=== PATIENT | female | born 1985 | race Caucasian/White ===

== ENCOUNTER 2019-09-30 00:06 | Inpatient (IN) ==
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
[2019-09-30] MEDS ORDERED: DEXTROSE 5%-LACTATED RINGERS 1,000 ML IV PRN (00:11)
[2019-09-30] MEDS ORDERED: RINGER'S SOLUTION,LACTATED 1,000 ML IV ONE (00:11)
[2019-09-30] MEDS ORDERED: MISOPROSTOL 100 MCG TABLET VG PRN (00:11)
[2019-09-30] MEDS ORDERED: OXYTOCIN/DEXTROSE 5%-WATER 30 UNITS/500 ML BAG IV ONE ×2 (00:11→17:46)
[2019-09-30] MEDS ORDERED: ONDANSETRON 4 MG TAB.RAPDIS PO PRN (00:11)
[2019-09-30 00:38] LABS: Hematocrit 36.3 % (37.0-47.0); Hemoglobin 12.6 gm/dL (12.5-16.0); Mean Cell Volume 87.5 fl (78-100); Mean Corpuscular Hemoglobin 30.4 pg (27-31); Mean Corpuscular Hgb Conc 34.7 g/dl (32-36); Mean Platelet Volume 8.8 fl (8-12.5); Neutrophil # 5.7 K/mm3 (1.3-6.0); Neutrophil % 67.7 % (42-75.0); Platelet Count 211 K/mm3 (150-450); Red Blood Count 4.15 M/mm3 (4.2-5.4); Red Cell Distribution Width 13.2 % (11.5-14.0); White Blood Count 8.4 K/mm3 (4.0-10.5)
[2019-09-30 00:51] LABS: Albumin * 2.7 gm/dl (3.4-5.0); BUN/Creatinine Ratio 10.6 (9.0-21.6); Bilirubin, Total 0.2 mg/dL (0.0-1.1); Ca. Corrected For Albumin 8.7 mg/dL (8.4-10.2); Carbon Dioxide 21.3 mmol/L (24-32.6); Potassium 3.3 mmol/L (3.4-4.6); Total Protein 5.9 gm/dL (6.2-8.2)
[2019-09-30 00:59] LABS: Cocaine Ur Negative (NEGATIVE); Urine Barbiturate Negative (NEGATIVE); Urine Benzodiazepines Negative (NEGATIVE); Urine Opiates Negative (NEGATIVE); Urine PCP Negative (NEGATIVE); Urine THC Negative (NEGATIVE)
[2019-09-30] MEDS ORDERED: BUPIVACAINE HCL/0.9 % NACL/PF 250 ML EP PRN (06:41)
[2019-09-30] MEDS ORDERED: NALOXONE HCL 1 MG/1 ML SYRG IV PRN (06:41)
[2019-09-30] MEDS ORDERED: ONDANSETRON HCL/PF 2 MG/ML VIAL IV PRN (06:41)
[2019-09-30] MEDS ORDERED: BUPIVACAINE HCL/PF 30 ML VIAL EP SCH (06:45)
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
--- NOTE | 2019-09-30 07:25 | ANES ---
Anesthesia Procedure Note Procedure Note: ANESTHESIA PROCEDURE NOTE Date of Procedure: 09/30/2019. Time of procedure: 714. Performed by: Mervin Baker CRNA Electronic Equipment Trades Worker: None. Preprocedure diagnosis: Active labor. Post procedure diagnosis: Same. Procedure: Insertion of labor epidural. Indications: The patient is a 34-year-old female in active labor requesting labor epidural for pain management. Findings: See below. Details of the procedure: The patient was placed in a sitting position. DuraPrep as well as Betadine swabs X3 was applied to the patient's back. Patient was then draped in a sterile fashion. Lidocaine 1% was infiltrated to the skin and subcutaneous tissues at the level of the L3-4 interspace. The epidural space was identified using a 18-gauge Tuohy needle with [id number] technique. Epidural catheter was inserted to a depth of 13 centimeters at skin. Negative test dose was elicited using 3 mL of 1.5% preservative-free lidocaine plus epinephrine 1 200,000. The epidural catheter was then taped and secured in place. A loading dose of 8 mL of 0.25% preservative-free bupivacaine was administered to the epidural catheter after negative aspiration for blood and CSF. EBL: Minimal. Fluids: N/A. Specimen: N/A. Post procedure condition: The patient tolerated the procedure well. No complications were noted. Thank you for this consultation. Mervin Baker CRNA
--- NOTE | 2019-09-30 07:25 | ANES ---
Post Anesthesia Assessment - Vital Signs Vitals: Last Vital Signs Temp 36.5 C 09/30/19 00:24 Pulse 83 09/30/19 00:24 Resp 20 09/30/19 00:24 BP 145/81 H 09/30/19 00:24 Pulse Ox 97 09/30/19 00:24 Airway Patency: Normal - Mental Status Level Of Consciousness: Awake - N/V Assessment Nausea/Vomiting Presence: None Dehydration:: No
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
--- NOTE | 2019-09-30 09:25 | PN ---
Progess Note - Interim Date: 09/30/19 Time: 09:24 Narrative: 09/30/19 09:24 Patient comfortable with epidural Vital signs stable. Pitocin at 4 mu/min. FHT: 125 baseline, reassuring contractions q 3-4 min Cervix: 3/50/-2 Impression: Intrauterine at 38 weeks induction of labor for chronic hypertension controlled on medication. Plan: Continue present plan
[2019-09-30] MEDS ORDERED: GLYCERIN/WITCH HAZEL LEAF 40 APPL BOX TP PRN (17:46)
[2019-09-30] MEDS ORDERED: SENNOSIDES 8.6 MG TABLET PO PRN (17:46)
[2019-09-30] MEDS ORDERED: HYDROCORTISONE 30 APPL TUBE TP PRN (17:46)
[2019-09-30] MEDS ORDERED: oxyCODONE HCL/ACETAMINOPHEN 1 TAB TABLET PO PRN (17:46)
[2019-09-30] MEDS ORDERED: BISACODYL 10 MG SUPP.RECT RC PRN (17:46)
[2019-09-30] MEDS ORDERED: BENZOCAINE/MENTHOL 81 SPRAY CAN TP PRN (17:46)
--- NOTE | 2019-09-30 17:50 | OR ---
Operative Report - Dictated Report Narrative: Spontaneous vaginal delivery of viable male at 1606 on 09/30/2019 with Apgars 9 and 9, weighing 3533 g in ROP presentation. Cord clamping delayed approximately 1 minute Placenta delivered complete, intact, with three vessel cord Estimated blood loss: Less than 50 ml Anesthesia: Epidural Lacerations: First-degree vaginal/perineal laceration (2-3 cm) repaired with 3-0 Vicryl Rapide
[2019-09-30] MEDS: IBUPROFEN 800 MG TABLET PO PRN (18:23)
[2019-09-30] MEDS: DOCUSATE SODIUM 100 MG CAPSULE PO SCH (21:08)
[2019-09-30] MEDS: LABETALOL HCL 100 MG TABLET PO SCH (21:08)
[2019-10-01] MEDS: IBUPROFEN 800 MG TABLET PO PRN ×3 (03:48→20:59)
[2019-10-01] MEDS: DOCUSATE SODIUM 100 MG CAPSULE PO SCH ×2 (08:21→20:59)
[2019-10-01] MEDS: LABETALOL HCL 100 MG TABLET PO SCH ×2 (08:21→21:10)
[2019-10-01] MEDS: PRENATAL VITS96/IRON FUM/FOLIC 1 TAB TABLET PO SCH (08:21)
--- NOTE | 2019-10-01 13:27 | PN ---
Subjective - Date and Time Seen Date: 10/01/19 Time: 13:26 Objective - Vitals Vitals: Last Vital Signs Temp 36.1 C 10/01/19 07:35 Pulse 81 10/01/19 08:21 Resp 16 10/01/19 07:35 BP 148/87 H 10/01/19 08:21 Pulse Ox 99 10/01/19 07:35 Patient denies complaints. Lochia wnl abdomen - soft, nontender Uterus -firm, at umbilicus - 1 no calf tenderness Impression: day #1 - s/p spontaneous vaginal delivery. Chronic hypertension - stable. Plan: Continue routine care Cauti Physician Documentation - Urinary Catheter Management Urethral ([place]) Date of Insertion: 09/30/19 Time of Insertion: 08:30 Assessment/Plan - Problems/Diagnosis (1) Hypertension Problem: Chronic Qualifiers: Hypertension type: essential hypertension Qualified Code(s): I10 - Essential (primary) hypertension (2) Asthma Problem: Chronic Qualifiers: Asthma severity: mild Asthma persistence: intermittent Asthma complication type: uncomplicated Qualified Code(s): J45.20 - Mild intermittent asthma, uncomplicated (3) Obesity, Class II, BMI 35-39.9 Problem: Chronic (4) History of pre-eclampsia Problem: Chronic History for MU History for Definition: * The number of deliveries resulting in a live the patient experienced prior to current hospitalization * The previous delivery of live twins or any live multiple gestation is considered one live event. *If primagravida or nulliparous is documented select zero for the number of prev ious live births. Live Events: Live Events: 2
--- NOTE | 2019-10-01 15:48 | PN ---
Progess Note - Interim Date: 10/01/19 Time: 15:46 Narrative: 10/01/19 15:46 Called by RN regarding the patient's BP in the severe range. The patient is asymptomatic. She is a chronic hypertensive on 50 mg of labetalol daily. Increase labetalol to 100mg PO BID.
[2019-10-01] MEDS ORDERED: LABETALOL HCL 100 MG TABLET PO ONE (16:02)
[2019-10-01] MEDS ORDERED: LABETALOL HCL 100 MG TABLET ONE (20:50)
[2019-10-01] MEDS ORDERED: LABETALOL HCL 100 MG TABLET PO SCH (21:00)
[2019-10-02] MEDS: IBUPROFEN 800 MG TABLET PO PRN (06:55)
[2019-10-02 07:21] VITALS: BP 145/85
[2019-10-02] MEDS: PRENATAL VITS96/IRON FUM/FOLIC 1 TAB TABLET PO SCH (08:12)
[2019-10-02] MEDS: LABETALOL HCL 100 MG TABLET PO SCH (08:12)
[2019-10-02] MEDS: DOCUSATE SODIUM 100 MG CAPSULE PO SCH (08:12)
--- NOTE | 2019-10-02 12:14 | PN ---
Subjective - Date and Time Seen Date: 10/02/19 Time: 12:13 Objective - Vitals Vitals: Last Vital Signs Temp 36.5 C 10/02/19 07:10 Pulse 72 10/02/19 08:12 Resp 18 10/02/19 07:10 BP 145/85 H 10/02/19 08:12 Pulse Ox 99 10/02/19 07:10 Patient denies complaints. Bottlefeeding. Lochia wnl abdomen - soft, nontender Uterus -firm, at umbilicus - 2 no calf tenderness Impression: day #2 - s/p spontaneous vaginal delivery. Chronic hypertension-stable Plan: Routine discharge instructions Cauti Physician Documentation - Urinary Catheter Management Urethral ([place]) Date of Insertion: 09/30/19 Time of Insertion: 08:30 Assessment/Plan - Problems/Diagnosis (1) Hypertension Problem: Chronic Qualifiers: Hypertension type: essential hypertension Qualified Code(s): I10 - Essential (primary) hypertension (2) Asthma Problem: Chronic Qualifiers: Asthma severity: mild Asthma persistence: intermittent Asthma complication type: uncomplicated Qualified Code(s): J45.20 - Mild intermittent asthma, uncomplicated (3) Obesity, Class II, BMI 35-39.9 Problem: Chronic (4) History of pre-eclampsia Problem: Chronic
== END 2019-10-02 12:30 | disposition home or self-care (01) | DRG 807 ==
LOC: OB 00:06
PROVIDERS: ADMIT Obstetrics & Gynecology; ATTEND Obstetrics & Gynecology
CPT/HCPCS: 36415; 59025; 80053; 80307; 85025; 88307